=== PATIENT | male | born 1985 | race Caucasian/White ===

== ENCOUNTER 2016-12-27 14:40 | Emergency (ER) | payer SELFPAY ==
[~2016-12-27] VITALS: Ht 175.3 cm; Wt 72.7 kg
[~2016-12-27 14:40] MED LIST: AMOXICILLIN875 MG PO; NICOTINE T21 MG/24 H; NORCO 325 MG-51 TA1 PO
[2016-12-27] MEDS ORDERED: CIPRO500 M1 PO (16:35)
[2016-12-27] MEDS ORDERED: NORCO 325 MG-51 TA1 PO (16:35)
[2016-12-27] MEDS ORDERED: FLOMAX0.4 MG PO (16:35)
[2016-12-27 16:47] VITALS: BP 136/83
== END 2016-12-27 16:47 | disposition home or self-care (01) ==
LOC: ED 14:40
DX: N20.0 Calculus of kidney (principal); Z87.442 Personal history of urinary calculi

== ENCOUNTER 2017-02-15 12:53 | Emergency (ER) | payer SELFPAY ==
[~2017-02-15 12:53] MED LIST changes: +CIPRO500 M1 PO; +FLOMAX0.4 MG PO
[2017-02-15] MEDS ORDERED: NORCO 325 MG-51 TAB PO (13:56)
[2017-02-15] MEDS ORDERED: SEPTRA DS 8001 TAB PO (13:56)
[2017-02-15] MEDS ORDERED: FLOMAX0.4 MG PO (13:56)
[2017-02-15 14:11] VITALS: BP 126/86
== END 2017-02-15 14:11 | disposition home or self-care (01) ==
LOC: ED 12:53
DX: R10.31 Right lower quadrant pain (principal); N20.1 Calculus of ureter; Z87.442 Personal history of urinary calculi

== ENCOUNTER 2017-05-01 10:17 | Emergency (ER) | payer MEDICAID ==
[~2017-05-01] VITALS: Ht 175.3 cm; Wt 77.3 kg
[~2017-05-01 10:17] MED LIST changes: +NORCO 325 MG-51 TAB PO; +SEPTRA DS 8001 TAB PO
[2017-05-01] MEDS ORDERED: IBU800 M1 PO (11:17)
[2017-05-01] MEDS ORDERED: AMOXICILLIN875 MG PO (11:17)
[2017-05-01] MEDS ORDERED: NORCO 325 MG-51 TA1 PO (11:17)
[2017-05-01 11:29] VITALS: BP 148/75
== END 2017-05-01 11:29 | disposition home or self-care (01) ==
LOC: ED 10:17
DX: K03.81 Cracked tooth (principal); R59.0 Localized enlarged lymph nodes; F17.210 Nicotine dependence, cigarettes, uncomplicated

== ENCOUNTER → 2017-08-17 | Emergency (ER) | payer SELFPAY ==
[~2017-08-17] MED LIST changes: +GOOD NEIGHBOR200 M3 PO; +IBU800 M1 PO; +[UNRECOGNIZED DRUG - OTHER]
[2017-08-17 19:21] LABS: HEMOGLOBIN 15.6 g/dL (13.5-18.0); MEAN CELL VOLUME 87 fl (78-100); MEAN CORPUSCULAR HEMOGLOBIN 30 pg (27-31); MEAN CORPUSCULAR HGB CONC 34 g/dL (33-37); PLATELET COUNT 202 K/mm3 (130-400); RED BLOOD COUNT 5.27 M/mm3 (4.20-5.60); RED CELL DISTRIBUTION WIDTH 12.7 % (11.5-14.5); WHITE BLOOD COUNT 3.8 K/mm3 (4.8-10.8)
[2017-08-17 19:31] LABS: LYMPHOCYTE 17 % (20-51); MONOCYTE 15 % (3-10); NEUTROPHILS 63 % (42-75)
[2017-08-17 19:33] LABS: ALBUMIN 4.6 g/dL (3.5-5.0); BUN/CREATININE RATIO 12.2 (6.0-26.0); CALCIUM 9.4 mg/dL (8.4-10.2); POTASSIUM 4.4 mmol/L (3.6-5.0); TOTAL BILIRUBIN 0.5 mg/dL (0.2-1.3); TOTAL PROTEIN 8.2 g/dL (6.3-8.2)
[2017-08-17 20:47] VITALS: BP 140/86
== END ==
LOC: ED 18:01
PROVIDERS: Family Medicine
DX: B34.9 Viral infection, unspecified (principal); R04.0 Epistaxis; F17.210 Nicotine dependence, cigarettes, uncomplicated

== ENCOUNTER 2017-10-08 11:07 | Emergency (ER) | payer SELFPAY ==
[~2017-10-08] VITALS: Ht 175.3 cm; Wt 68.2 kg
[2017-10-08 11:38] VITALS: BP 144/69
== END 2017-10-08 11:34 | disposition home or self-care (01) ==
LOC: ED 11:07
DX: S01.512A Laceration without foreign body of oral cavity, initial encounter (principal); S00.83XA Contusion of other part of head, initial encounter; Y04.0XXA Assault by unarmed brawl or fight, initial encounter; Y92.009 Unspecified place in unspecified non-institutional (private) residence as the place of occurrence of the external cause; K08.89 Other specified disorders of teeth and supporting structures

== ENCOUNTER 2017-12-25 09:26 | Emergency (ER) | payer SELFPAY ==
[~2017-12-25] VITALS: Ht 170.2 cm; Wt 63.6 kg
[2017-12-25 09:35] VITALS: BP 146/86
[2017-12-25 09:52] LABS: EOS # 0.2 (0.04-0.40); EOS % 3.7 % (0.0-4.0); HEMATOCRIT 45.8 % (42.0-52.0); HEMOGLOBIN 15.3 g/dL (13.5-18.0); LYMPH# 2.3 (1.50-4.00); MEAN CELL VOLUME 87 fl (78-100); MEAN CORPUSCULAR HEMOGLOBIN 29 pg (27-31); MEAN CORPUSCULAR HGB CONC 33 g/dL (33-37); MEAN PLATELET VOLUME 11.3 fl (7.4-10.4); MONO # 0.5 (0.20-0.80); NEU # 2.9 (1.40-6.50); PLATELET COUNT 204 K/mm3 (130-400); RED BLOOD COUNT 5.29 M/mm3 (4.20-5.60); RED CELL DISTRIBUTION WIDTH 13.5 % (11.5-14.5)
[2017-12-25 10:02] LABS: BUN/CREATININE RATIO 14.3 (6.0-26.0); POTASSIUM 4.2 mmol/L (3.6-5.0); TOTAL PROTEIN 7.4 g/dL (6.3-8.2)
[2017-12-25 10:52] LABS: ALBUMIN 4.5 g/dL (3.5-5.0); TOTAL BILIRUBIN 0.6 mg/dL (0.2-1.3)
== END 2017-12-25 09:53 | disposition left against medical advice (07) ==
LOC: ED 09:26
PROVIDERS: Nurse Practitioner Primary Care
DX: R10.9 Unspecified abdominal pain (principal); Z53.21 Procedure and treatment not carried out due to patient leaving prior to being seen by health care provider; R31.9 Hematuria, unspecified; Z87.442 Personal history of urinary calculi; F41.9 Anxiety disorder, unspecified
CPT/HCPCS: J1885

== ENCOUNTER 2018-01-16 05:29 | Emergency (ER) | payer SELFPAY ==
[~2018-01-16] VITALS: Ht 175.3 cm; Wt 68.2 kg
[2018-01-16 06:22] LABS: EOS # 0.2 (0.04-0.40); HEMATOCRIT 44.9 % (42.0-52.0); HEMOGLOBIN 15.2 g/dL (13.5-18.0); LYMPH# 1.9 (1.50-4.00); MEAN CELL VOLUME 86 fl (78-100); MEAN CORPUSCULAR HEMOGLOBIN 29 pg (27-31); MEAN CORPUSCULAR HGB CONC 34 g/dL (33-37); MEAN PLATELET VOLUME 11.4 fl (7.4-10.4); MONO # 0.8 (0.20-0.80); NEU # 6.9 (1.40-6.50); PLATELET COUNT 208 K/mm3 (130-400); RED BLOOD COUNT 5.21 M/mm3 (4.20-5.60); RED CELL DISTRIBUTION WIDTH 13.5 % (11.5-14.5); WHITE BLOOD COUNT 9.9 K/mm3 (4.8-10.8)
[2018-01-16] MEDS ORDERED: XANAX0.5 M1 PO (06:29)
[2018-01-16 06:33] LABS: ALBUMIN 4.5 g/dL (3.5-5.0); BUN/CREATININE RATIO 17.8 (6.0-26.0); CALCIUM 9.1 mg/dL (8.4-10.2); POTASSIUM 4.2 mmol/L (3.6-5.0); TOTAL BILIRUBIN 0.5 mg/dL (0.2-1.3); TOTAL PROTEIN 7.8 g/dL (6.3-8.2)
[2018-01-16] MEDS ORDERED: BUPRENORPHINE H1 TA1 SL (06:36)
[2018-01-16 06:39] LABS: URINE APPEARANCE BLOODY; URINE BILIRUBIN NEGATIVE (NEGATIVE); URINE BLOOD 250 ery/uL (NEGATIVE); URINE COLOR RED; URINE GLUCOSE NEGATIVE (NEGATIVE); URINE KETONE NEGATIVE (NEGATIVE); URINE LEUKOCYTE ESTERASE NEGATIVE (NEGATIVE); URINE MUCUS PRESENT (NOT PRESENT); URINE NITRATE NEGATIVE (NEGATIVE); URINE PROTEIN(semi-quant) 3+ mg/dL (NEGATIVE); URINE UROBILINOGEN NORMAL (NORMAL)
[2018-01-16] MEDS ORDERED: KETOROLAC10 MG PO (10:41)
[2018-01-16] MEDS ORDERED: NORCO 325 MG-51 TA1 PO (10:41)
[2018-01-16] MEDS ORDERED: FLOMAX0.4 MG PO (10:41)
[2018-01-16] MEDS ORDERED: CEPHALEXIN500 M1 PO (10:41)
[2018-01-16] MEDS ORDERED: ZOFRAN ODT4 MG PO (10:41)
[2018-01-16 11:14] VITALS: BP 127/80
== END 2018-01-16 11:31 | disposition home or self-care (01) ==
LOC: ED 05:29
PROVIDERS: Nurse Practitioner Family
DX: N13.2 Hydronephrosis with renal and ureteral calculous obstruction (principal); Z87.442 Personal history of urinary calculi; R11.2 Nausea with vomiting, unspecified; N50.812 Left testicular pain; N50.811 Right testicular pain; F17.200 Nicotine dependence, unspecified, uncomplicated
CPT/HCPCS: J1885; J2550; J7030

== ENCOUNTER 2018-06-11 13:26 | Emergency (ER) | payer OTHER ==
[~2018-06-11] VITALS: Ht 175.3 cm; Wt 68.2 kg
[~2018-06-11 13:26] MED LIST changes: +BUPRENORPHINE H1 TA1 SL; +CEPHALEXIN500 M1 PO; +KETOROLAC10 MG PO; +XANAX0.5 M1 PO; +ZOFRAN ODT4 MG PO
[2018-06-11 13:34] VITALS: BP 124/92
[2018-06-11] MEDS ORDERED: AMOXICILLIN875 MG PO (14:26)
== END 2018-06-11 14:23 | disposition home or self-care (01) ==
LOC: ED 13:26
DX: K08.89 Other specified disorders of teeth and supporting structures (principal); F17.210 Nicotine dependence, cigarettes, uncomplicated

== ENCOUNTER 2019-02-11 19:24 | Emergency (ER) | payer SELFPAY ==
[~2019-02-11 19:24] MED LIST changes: +ATIVAN0.5 MG PO; +CYCLOBENZAPRINE10 M1 PO; +MELOXICAM7.5 MG PO
[2019-02-11 20:03] VITALS: BP 154/90
[2019-02-11 20:19] LABS: EOS # 0.1 (0.04-0.40); EOS % 1.2 % (0.0-4.0); HEMATOCRIT 43.9 % (42.0-52.0); HEMOGLOBIN 14.8 g/dL (13.5-18.0); LYMPH# 1.6 (1.50-4.00); MEAN CELL VOLUME 88 fl (78-100); MEAN CORPUSCULAR HEMOGLOBIN 30 pg (27-31); MEAN CORPUSCULAR HGB CONC 34 g/dL (33-37); MEAN PLATELET VOLUME 10.6 fl (7.4-10.4); MONO # 0.5 (0.20-0.80); NEU # 3.8 (1.40-6.50); PLATELET COUNT 243 K/mm3 (130-400); RED BLOOD COUNT 5.02 M/mm3 (4.20-5.60); RED CELL DISTRIBUTION WIDTH 13.6 % (11.5-14.5); WHITE BLOOD COUNT 5.9 K/mm3 (4.8-10.8)
[2019-02-11 20:23] LABS: URINE APPEARANCE CLEAR; URINE BILIRUBIN NEGATIVE (NEGATIVE); URINE BLOOD NEGATIVE (NEGATIVE); URINE COLOR YELLOW; URINE GLUCOSE NEGATIVE (NEGATIVE); URINE KETONE NEGATIVE (NEGATIVE); URINE LEUKOCYTE ESTERASE NEGATIVE (NEGATIVE); URINE NITRATE NEGATIVE (NEGATIVE); URINE PROTEIN(semi-quant) NEGATIVE (NEGATIVE); URINE UROBILINOGEN NORMAL (NORMAL); URINE WBC 0-1 /hpf (0-3)
[2019-02-11 20:28] LABS: ALBUMIN 4.6 g/dL (3.5-5.0); POTASSIUM 4.1 mmol/L (3.5-5.1)
[2019-02-11 20:29] LABS: CALCIUM 9.3 mg/dL (8.3-10.5)
[2019-02-11 20:31] LABS: TOTAL PROTEIN 7.2 g/dL (6.4-8.3)
[2019-02-11 20:32] LABS: TOTAL BILIRUBIN 0.4 mg/dL (0.2-1.2)
== END 2019-02-11 22:30 | disposition home or self-care (01) ==
LOC: ED 19:24
PROVIDERS: Nurse Practitioner Family
DX: N20.0 Calculus of kidney (principal); M79.18 Myalgia, other site; F17.210 Nicotine dependence, cigarettes, uncomplicated; Z98.890 Other specified postprocedural states
CPT/HCPCS: J1885; J2550; J7030; Q9967

== ENCOUNTER → 2019-09-06 | Outpatient (CLI) | payer SELFPAY | LOC: LAB 13:49 | DX: R05 Cough (principal); R50.9 Fever, unspecified ==

== ENCOUNTER 2019-09-10 10:25 | Emergency (ER) | payer SELFPAY ==
[2019-09-10 10:35] VITALS: BP 135/91
[2019-09-10] MEDS ORDERED: BUPRENORPHINE H1 TA2 (10:37)
[2019-09-10 11:29] LABS: EOS # 0.1 (0.04-0.40); EOS % 2.1 % (0.0-4.0); HEMOGLOBIN 15.6 g/dL (13.5-18.0); LYMPH# 1.2 (1.50-4.00); MEAN CELL VOLUME 86 fl (78-100); MEAN CORPUSCULAR HEMOGLOBIN 29 pg (27-31); MEAN CORPUSCULAR HGB CONC 34 g/dL (33-37); MEAN PLATELET VOLUME 10.8 fl (7.4-10.4); MONO # 0.6 (0.20-0.80); NEU # 3.4 (1.40-6.50); PLATELET COUNT 240 K/mm3 (130-400); RED BLOOD COUNT 5.34 M/mm3 (4.20-5.60); WHITE BLOOD COUNT 5.3 K/mm3 (4.8-10.8)
[2019-09-10 11:41] LABS: ALBUMIN 4.5 g/dL (3.5-5.0); POTASSIUM 4.2 mmol/L (3.5-5.1); SODIUM 139 mmol/L (136-145)
[2019-09-10 11:42] LABS: CALCIUM 9.1 mg/dL (8.3-10.5)
[2019-09-10 11:43] LABS: GLUCOSE 98 mg/dL (75-110); TOTAL PROTEIN 7.5 g/dL (6.4-8.3)
[2019-09-10 11:44] LABS: CARBON DIOXIDE 25 mmol/L (22-29)
[2019-09-10 11:45] LABS: TOTAL BILIRUBIN 0.5 mg/dL (0.2-1.2)
[2019-09-10 11:49] LABS: AST-SGOT 20 U/L (5-34)
[2019-09-10 11:50] LABS: ALT/SGPT 22 U/L (0-55)
[2019-09-10 11:58] LABS: D-DIMER 0.37 mg/L FEU (0.15-0.50); TROPONIN-I < 0.03 ng/mL (<0.030)
== END 2019-09-10 12:53 | disposition left against medical advice (07) ==
LOC: ED 10:25
PROVIDERS: Nurse Practitioner Family
DX: F41.9 Anxiety disorder, unspecified (principal); R06.02 Shortness of breath

== ENCOUNTER 2019-11-01 09:51 | Emergency (ER) | payer SELFPAY ==
[~2019-11-01] VITALS: Ht 175.3 cm; Wt 61.5 kg
[~2019-11-01 09:51] MED LIST changes: +BUPRENORPHINE H1 TA2
[2019-11-01 11:00] LABS: EOS # 0.1 (0.04-0.40); EOS % 3.2 % (0.0-4.0); HEMATOCRIT 44.2 % (42.0-52.0); HEMOGLOBIN 14.6 g/dL (13.5-18.0); LYMPH# 1.4 (1.50-4.00); MEAN CELL VOLUME 87 fl (78-100); MEAN CORPUSCULAR HEMOGLOBIN 29 pg (27-31); MEAN CORPUSCULAR HGB CONC 33 g/dL (33-37); MONO # 0.5 (0.20-0.80); NEU # 2.4 (1.40-6.50); PLATELET COUNT 198 K/mm3 (130-400); RED BLOOD COUNT 5.07 M/mm3 (4.20-5.60); RED CELL DISTRIBUTION WIDTH 13.5 % (11.5-14.5); WHITE BLOOD COUNT 4.4 K/mm3 (4.8-10.8)
[2019-11-01 11:05] LABS: ALBUMIN 4.3 g/dL (3.5-5.0); POTASSIUM 3.9 mmol/L (3.5-5.1); SODIUM 141 mmol/L (136-145)
[2019-11-01 11:06] LABS: CALCIUM 9.4 mg/dL (8.3-10.5)
[2019-11-01 11:08] LABS: GLUCOSE 91 mg/dL (75-110)
[2019-11-01 11:09] LABS: CARBON DIOXIDE 24 mmol/L (22-29); TOTAL BILIRUBIN 0.3 mg/dL (0.2-1.2)
[2019-11-01 11:13] LABS: AST-SGOT 18 U/L (5-34)
[2019-11-01 11:15] LABS: ALT/SGPT 17 U/L (0-55)
[2019-11-01 11:24] LABS: URINE APPEARANCE CLEAR; URINE BILIRUBIN NEGATIVE (NEGATIVE); URINE BLOOD NEGATIVE (NEGATIVE); URINE COLOR YELLOW; URINE GLUCOSE NEGATIVE (NEGATIVE); URINE KETONE NEGATIVE (NEGATIVE); URINE LEUKOCYTE ESTERASE NEGATIVE (NEGATIVE); URINE MUCUS PRESENT (NOT PRESENT); URINE NITRATE NEGATIVE (NEGATIVE); URINE PROTEIN(semi-quant) TRACE mg/dL (NEGATIVE); URINE UROBILINOGEN NORMAL (NORMAL); URINE WBC 0 /hpf (0-3)
[2019-11-01 11:26] LABS: TROPONIN-I < 0.03 ng/mL (<0.030)
[2019-11-01] MEDS ORDERED: PROTONIX TR40 M1 PO (13:19)
[2019-11-01 13:30] VITALS: BP 136/82
== END 2019-11-01 13:31 | disposition home or self-care (01) ==
LOC: ED 09:51
PROVIDERS: Nurse Practitioner Primary Care
DX: K21.0 Gastro-esophageal reflux disease with esophagitis (principal); F17.210 Nicotine dependence, cigarettes, uncomplicated; F43.10 Post-traumatic stress disorder, unspecified; F41.9 Anxiety disorder, unspecified
CPT/HCPCS: C9113; J3490; J7030; Q9967

== ENCOUNTER 2019-11-07 21:52 | Emergency (ER) | payer SELFPAY ==
[~2019-11-07 21:52] MED LIST changes: +PROTONIX TR40 M1 PO
[2019-11-07] MEDS ORDERED: PENICILLIN-VK500 M1 PO (22:28)
[2019-11-07 22:40] VITALS: BP 154/108
== END 2019-11-07 22:40 | disposition home or self-care (01) ==
LOC: ED 21:52
DX: K02.9 Dental caries, unspecified (principal); F41.9 Anxiety disorder, unspecified; F17.210 Nicotine dependence, cigarettes, uncomplicated; Z87.442 Personal history of urinary calculi

== ENCOUNTER → 2020-01-27 | Emergency (ER) | payer SELFPAY ==
[~2020-01-27] MED LIST changes: +PENICILLIN-VK500 M1 PO
== END ==
LOC: ED 10:54
DX: R69 Illness, unspecified (principal); Z53.21 Procedure and treatment not carried out due to patient leaving prior to being seen by health care provider

== ENCOUNTER 2020-08-21 05:32 | Emergency (ER) | payer SELFPAY ==
[2020-08-21 05:45] VITALS: BP 137/86
[2020-08-21] MEDS ORDERED: SUBOXONE 8 MG-21 FIL SL (05:51)
[2020-08-21 06:54] LABS: EOS # 0.1 (0.04-0.40); EOS % 0.9 % (0.0-4.0); HEMATOCRIT 40.8 % (42.0-52.0); LYMPH# 1.2 (1.50-4.00); MEAN CELL VOLUME 85 fl (78-100); MEAN CORPUSCULAR HEMOGLOBIN 29 pg (27-31); MEAN CORPUSCULAR HGB CONC 34 g/dL (33-37); MEAN PLATELET VOLUME 11.1 fl (7.4-10.4); MONO # 0.5 (0.20-0.80); NEU # 3.8 (1.40-6.50); PLATELET COUNT 201 K/mm3 (130-400); RED BLOOD COUNT 4.79 M/mm3 (4.20-5.60); RED CELL DISTRIBUTION WIDTH 12.9 % (11.5-14.5); WHITE BLOOD COUNT 5.5 K/mm3 (4.8-10.8)
[2020-08-21 07:11] LABS: URINE APPEARANCE CLEAR; URINE COLOR YELLOW; URINE GLUCOSE NEGATIVE (NEGATIVE); URINE KETONE SMALL (NEGATIVE); URINE PROTEIN(semi-quant) TRACE mg/dL (NEGATIVE)
[2020-08-21 07:12] LABS: URINE BILIRUBIN NEGATIVE (NEGATIVE); URINE BLOOD NEGATIVE (NEGATIVE); URINE LEUKOCYTE ESTERASE NEGATIVE (NEGATIVE); URINE MUCUS PRESENT (NOT PRESENT); URINE NITRATE NEGATIVE (NEGATIVE); URINE UROBILINOGEN NORMAL (NORMAL); URINE WBC 0-1 /hpf (0-3)
[2020-08-21] MEDS ORDERED: IBU800 M1 PO (10:48)
== END 2020-08-21 10:52 | disposition home or self-care (01) ==
LOC: ED 05:32
PROVIDERS: Family Medicine
DX: I86.1 Scrotal varices (principal); F17.210 Nicotine dependence, cigarettes, uncomplicated
CPT/HCPCS: J1885